=== PATIENT | male | born 1945 | race Caucasian/White ===

== ENCOUNTER → 2023-11-02 12:55 | Outpatient (REF) | payer MEDICARE, SELFPAY | LOC: RAD 12:55 | PROVIDERS: ATTENDING PHYSICIAN Internal Medicine Cardiovascular Disease; FAMILY PHYSICIAN Family Medicine | DX: R07.9 Chest pain, unspecified (principal) | CPT/HCPCS: 93925 ==

== ENCOUNTER → 2024-03-26 10:13 | Outpatient (REF) | payer MEDICARE, SELFPAY ==
[2024-03-26 10:58] LABS: % Basophils 0.9 % (0-2); % Eosinophils 3.8 % (0-6); % Immature Granulocytes 0.4 % (0-0.5); % Lymphocytes 12.8 % (20.5-51.1); % Monocytes 8.2 % (1.7-9.3); % Neutrophils 73.9 % (42.2-75.2); Absolute Basophils 0.1 10^3/uL (0-0.2); Absolute Eosinophils 0.3 10^3/uL (0-0.7); Absolute Lymphocytes 0.9 10^3/uL (1.2-3.4); Absolute Monocytes 0.6 10^3/uL (0.1-0.6); Hematocrit 39.9 % (39.0-52.0); Hemoglobin 13.8 g/dL (13.0-18.0); Mean Corp Hgb Conc. 34.6 g/dL (33.0-37.0); Mean Corpuscular Hgb 30.9 pg (27.0-31.0); Mean Corpuscular Volume 89.5 fL (80.0-94.0); Mean Platelet Volume 8.5 fL (7.4-10.4); Nucleated Red Blood Cells % 0 % (-); Platelet Count 255 10^3/uL (130-400); Red Blood Cell Count 4.46 10^6/uL (4.70-6.10); Red Cell Dist. Width 12.2 % (11.5-14.5); White Blood Cell Count 6.8 10^3/uL (4.8-10.8)
[2024-03-26 11:27] LABS: ALT (SGPT) 23 U/L (0-50); AST (SGOT) 24 U/L (17-59); Albumin 4.1 g/dl (3.5-5.0); Alkaline Phosphatase 76 U/L (38-126); Blood Urea Nitrogen 17 mg/dl (9-20); Calcium 9.8 mg/dl (8.4-10.2); Carbon Dioxide 29 mmol/L (22-30); Chloride 104 mmol/L (98-107); Glucose 100 mg/dl (70-99); HDL Cholesterol 71 mg/dl; LDL Cholesterol, Calculated 99 mg/dl; Potassium 4.7 mmol/L (3.5-5.1); Sodium 140 mmol/L (135-145); Total Bilirubin 0.7 mg/dl (0.2-1.3); Total Cholesterol 178 mg/dl (50-199); Total Protein 7.4 g/dl (6.3-8.2); Triglyceride 44 mg/dl (10-149); Very Low Density Lipoprotein 8 mg/dl (0-30); eGFR > 60.00
[2024-03-26 11:41] LABS: Free T4 1.08 ng/dl (0.78-2.19); Vitamin D, 25-OH*** 33.2 ng/mL (30-80)
[2024-03-26 11:54] LABS: TSH 1.55 uIU/ml (0.47-4.68)
== END ==
LOC: REG 10:13
PROVIDERS: ATTENDING PHYSICIAN Family Medicine; FAMILY PHYSICIAN Internal Medicine Hematology & Oncology; REFERRING PHYSICIAN Internal Medicine Gastroenterology
DX: D47.2 Monoclonal gammopathy (principal); Z82.3 Family history of stroke; D68.51 Activated protein C resistance; E78.2 Mixed hyperlipidemia; K21.9 Gastro-esophageal reflux disease without esophagitis; N20.0 Calculus of kidney; R53.82 Chronic fatigue, unspecified
CPT/HCPCS: 36415; 80053; 80061; 82306; 82784; 83521; 84155; 84165; 84439; 84443; 85025; 86334

== ENCOUNTER → 2024-04-01 12:00 | Outpatient (REF) | payer MEDICARE, SELFPAY | LOC: DHSLP 12:00 | PROVIDERS: ATTENDING PHYSICIAN Internal Medicine Critical Care Medicine; FAMILY PHYSICIAN Family Medicine | DX: G47.33 Obstructive sleep apnea (adult) (pediatric) (principal) | CPT/HCPCS: 95806 ==

== ENCOUNTER → 2024-07-26 13:29 | Outpatient (REF) | payer MEDICARE, SELFPAY | LOC: HWRAD 13:29 | PROVIDERS: ATTENDING PHYSICIAN Family Medicine; REFERRING PHYSICIAN Internal Medicine Cardiovascular Disease | DX: E78.2 Mixed hyperlipidemia (principal); I65.23 Occlusion and stenosis of bilateral carotid arteries | CPT/HCPCS: 93880 ==

== ENCOUNTER → 2025-02-26 11:05 | Outpatient (REF) | payer MEDICARE, SELFPAY ==
[2025-02-26 11:41] LABS: % Basophils 0.6 % (0-2); % Eosinophils 3.1 % (0-6); % Immature Granulocytes 0.3 % (0-0.5); % Lymphocytes 12.9 % (20.5-51.1); % Monocytes 7.9 % (1.7-9.3); % Neutrophils 75.2 % (42.2-75.2); Absolute Eosinophils 0.2 10^3/uL (0-0.7); Absolute Lymphocytes 0.8 10^3/uL (1.2-3.4); Absolute Monocytes 0.5 10^3/uL (0.1-0.6); Absolute Neutrophils 4.6 10^3/uL (1.4-6.5); Hematocrit 40.3 % (39.0-52.0); Hemoglobin 13.7 g/dL (13.0-18.0); Mean Corpuscular Hgb 30.5 pg (27.0-31.0); Mean Corpuscular Volume 89.8 fL (80.0-94.0); Mean Platelet Volume 8.7 fL (7.4-10.4); Nucleated Red Blood Cells % 0 % (-); Platelet Count 220 10^3/uL (130-400); Red Blood Cell Count 4.49 10^6/uL (4.70-6.10); Red Cell Dist. Width 12.1 % (11.5-14.5); White Blood Cell Count 6.2 10^3/uL (4.8-10.8)
[2025-02-26 12:04] LABS: Glycohemoglobin (HgbA1c) 5.5 % (4.0-5.6)
[2025-02-26 13:13] LABS: Free T4 1.06 ng/dl (0.78-2.19)
[2025-02-26 13:24] LABS: ALT (SGPT) 19 U/L (0-50); AST (SGOT) 20 U/L (17-59); Alkaline Phosphatase 63 U/L (38-126); Blood Urea Nitrogen 15 mg/dl (9-20); Calcium 9.2 mg/dl (8.4-10.2); Carbon Dioxide 26 mmol/L (22-30); Chloride 108 mmol/L (98-107); Glucose 102 mg/dl (70-99); Potassium 4.1 mmol/L (3.5-5.1); Sodium 140 mmol/L (135-145); Total Bilirubin 0.7 mg/dl (0.2-1.3); Total Protein 7.3 g/dl (6.3-8.2); eGFR > 60.00
[2025-02-26 13:25] LABS: ALT (SGPT) 19 U/L (0-50); AST (SGOT) 20 U/L (17-59); Albumin 4.1 g/dl (3.5-5.0); Alkaline Phosphatase 64 U/L (38-126); Blood Urea Nitrogen 15 mg/dl (9-20); Calcium 9.3 mg/dl (8.4-10.2); Carbon Dioxide 26 mmol/L (22-30); Chloride 108 mmol/L (98-107); Glucose 102 mg/dl (70-99); HDL Cholesterol 71 mg/dl; LDL Cholesterol, Calculated 85 mg/dl; Potassium 4.3 mmol/L (3.5-5.1); Sodium 140 mmol/L (135-145); Total Bilirubin 0.8 mg/dl (0.2-1.3); Total Cholesterol 167 mg/dl (50-199); Total Protein 7.4 g/dl (6.3-8.2); Triglyceride 55 mg/dl (10-149); Very Low Density Lipoprotein 11 mg/dl (0-30); eGFR > 60.00
[2025-02-26 13:27] LABS: PSA, Total - Screen 3.21 ng/ml (0.0-4.0); TSH 1.69 uIU/ml (0.47-4.68)
== END ==
LOC: REG 11:05
PROVIDERS: ATTENDING PHYSICIAN Internal Medicine Hematology & Oncology; FAMILY PHYSICIAN Family Medicine
DX: D47.2 Monoclonal gammopathy (principal); Z82.3 Family history of stroke; D68.51 Activated protein C resistance; E78.2 Mixed hyperlipidemia; R73.01 Impaired fasting glucose; N52.9 Male erectile dysfunction, unspecified; J44.9 Chronic obstructive pulmonary disease, unspecified; R53.82 Chronic fatigue, unspecified
CPT/HCPCS: 36415; 80053; 80061; 82784; 83036; 83521; 84155; 84165; 84439; 84443; 85025; 86334; G0103

== ENCOUNTER → 2025-07-24 13:10 | Outpatient (REF) | payer MEDICARE, SELFPAY | LOC: RAD 13:10 | PROVIDERS: ATTENDING PHYSICIAN Internal Medicine Critical Care Medicine; FAMILY PHYSICIAN Family Medicine | DX: R06.02 Shortness of breath (principal) | CPT/HCPCS: 71046 ==

== ENCOUNTER 2025-08-06 20:44 | Emergency (ER) | payer MEDICARE, SELFPAY ==
[2025-08-06 20:47] VITALS: BP 152/65
[2025-08-06 21:09] LABS: Hematocrit 41.5 % (39.0-52.0); Hemoglobin 14.3 g/dL (13.0-18.0); Mean Corp Hgb Conc. 34.5 g/dL (33.0-37.0); Mean Corpuscular Volume 89.6 fL (80.0-94.0); Nucleated Red Blood Cells % 0 % (-); Platelet Count 238 10^3/uL (130-400); Red Cell Dist. Width 12.5 % (11.5-14.5)
[2025-08-06 21:20] LABS: ALT (SGPT) 23 U/L (0-50); AST (SGOT) 23 U/L (17-59); Albumin 4.3 g/dl (3.5-5.0); Alkaline Phosphatase 65 U/L (38-126); Blood Urea Nitrogen 19 mg/dl (9-20); Calcium 9.3 mg/dl (8.4-10.2); Carbon Dioxide 30 mmol/L (22-30); Chloride 103 mmol/L (98-107); Glucose 118 mg/dl (70-99); Potassium 4.4 mmol/L (3.5-5.1); Sodium 138 mmol/L (135-145); Total Protein 7.9 g/dl (6.3-8.2); eGFR > 60.00
[2025-08-06 21:31] LABS: Troponin I < 0.012 ng/ml
--- NOTE | 2025-08-06 21:53 | ED.GENMED ---
History of Present Illness
<Kait Hewitt MD, Resident - Last Filed: 08/06/25 22:40>
General
Chief Complaint: Dizziness
Source: patient
Exam Limitations: none
Time Seen by Provider: 08/06/25 21:34
Nursing documentation reviewed up to this point in time: agreed with
History of Present Illness
History of Present Illness:
80yo M with a hx of COPD, pulmonary fibrosis, HLD, GERD, & prior bladder ca who presents with subacute dizziness/lightheadedness and palpitations.
Pt reports that he began having sx of dizziness/lightheadedness, accompanied by palpitations/sense of heart fluttering, about 1 mo ago. It self-resolved without going to ED. He spoke with investment analyst, who told him to present for eval if he
experienced the sx again and who had him monitor BP at home. [employer] BP monitor flagged for the last few days that he had an 'irregular heartbeat.' Over the last few days, he also began experiencing the sensation of lightheadedness & palpitations. BPs
remained within normal range (max 130 systolic) throughout. Pt denies any n/v accompanying these episodes, denies any chest pain, denies any loss of consciousness. Endorses mild headache. Denies any abnormal caffeine intake (1 cup/day) or physical
activity preceding the onset of the most recent episodes. States that the only abnormal sx was bloating in abdomen. Takes amlodipine & metoprolol for HTN.
Past History
<Kait Hewitt MD, Resident - Last Filed: 08/06/25 22:40>
Past History
ED Past Medical History: Cancer (bladder), GERD and Hypercholesterolemia
ED Past Surgical History: Urological and Other (hernia repair,)
Social History
Tobacco: Former smoker
Alcohol: None
Drug: None
Personal:
Living: with family
Family History
Family History: Negative Diabetes
Review of Systems
<Kait Hewitt MD, Resident - Last Filed: 08/06/25 22:40>
Review of Systems
Allergies reviewed?: Yes
All Other Systems: ROS reviewed and negative except as documented in HPI and ROS
Constitutional: Reports no symptoms
EENT: Reports no symptoms
Respiratory: Reports no symptoms
Cardiac: Reports palpitations
ABD/GI: Reports no symptoms
: Reports no symptoms
Musculoskeletal: Reports no symptoms
Skin: Reports no symptoms
Neurological: Reports dizzy and headache
Psychiatric: Reports no symptoms
Phy Exam
<Kait Hewitt MD, Resident - Last Filed: 08/06/25 22:40>
General Physical Exam
General Presentation: well appearing and no apparent distress
General age: appears stated age
General Skin: warm and dry
General Habitus: normal
General Mental: alert
Cardiovascular Exam
Cardiovascular Exam: no edema, no murmur and occasionally irregular
Heart Sounds: normal
Pulmonary Exam
Pulmonary Exam: no respiratory distress
Gastrointestinal Exam
Gastrointestinal Exam: non distended
Neurological Exam
Neurological Exam: alert
Musculoskeletal Exam
Musculoskeletal Exam: full ROM
Skin Exam
Skin Exam: normal color
Psychiatric Exam
Psychiatric Exam: normal mood/affect
Scores
<Kimmie Stevens, DO - Last Filed: 08/06/25 22:55>
Heart Score for Chest Pain Patients
STEMI patient?: No
History: Slightly or Non-Suspicious
ECG: Normal
Age: >/= 65 years
Risk Factors: 1 or 2 Risk Factors
Troponin: </= Normal Limit
Heart Score for Chest Pain Patients: 3
Heart Score Risk: 2.5% MACE over next 6 weeks
Course
<Kait Hewitt MD, Resident - Last Filed: 08/06/25 22:40>
Orders/Labs/Results
Orders:
Orders
08/06/25 20:45
EKG [Electrocardiogram (*1)] Urgent
Reason for Study: Chest Pain
EKG- Treatment ONCE
08/06/25 20:57
Complete Blood Count/With Diff Urgent
Comprehensive Metabolic Panel Urgent
Troponin I Urgent
08/06/25 22:01
Electrocardiogram (*1) Urgent
Reason for Study: Palpitations
EKG- Treatment ONCE
Abnormal Lab Results
08/06/25
20:57
RBC 4.63 L 10^6/uL
(4.70-6.10)
Lymphocytes % 17.4 L %
(20.5-51.1)
Glucose 118 H mg/dl
(70-99)
08/06/25 20:57
08/06/25 20:57
Vital Signs
Initial and Last Documented VS:
Initial Vital Signs
Temp Pulse Resp BP Pulse Ox
98 F 55 16 152/65 98
08/06/25 20:47 08/06/25 20:47 08/06/25 20:47 08/06/25 20:47 08/06/25 20:47
Last Documented Vital Signs
Temp Pulse Resp BP Pulse Ox
98 F 55 16 121/81 96
08/06/25 20:47 08/06/25 20:47 08/06/25 20:47 08/06/25 22:11 08/06/25 22:15
<Kimmie Stevens, DO - Last Filed: 08/06/25 22:55>
Orders/Labs/Results
Orders:
Orders
08/06/25 20:45
EKG [Electrocardiogram (*1)] Urgent
Reason for Study: Chest Pain
EKG- Treatment ONCE
08/06/25 20:57
Complete Blood Count/With Diff Urgent
Comprehensive Metabolic Panel Urgent
Troponin I Urgent
08/06/25 22:01
Electrocardiogram (*1) Urgent
Reason for Study: Palpitations
EKG- Treatment ONCE
Abnormal Lab Results
08/06/25
20:57
RBC 4.63 L 10^6/uL
(4.70-6.10)
Lymphocytes % 17.4 L %
(20.5-51.1)
Glucose 118 H mg/dl
(70-99)
08/06/25 20:57
08/06/25 20:57
Vital Signs
Initial and Last Documented VS:
Initial Vital Signs
Temp Pulse Resp BP Pulse Ox
98 F 55 16 152/65 98
08/06/25 20:47 08/06/25 20:47 08/06/25 20:47 08/06/25 20:47 08/06/25 20:47
Last Documented Vital Signs
Temp Pulse Resp BP Pulse Ox
98 F 55 16 121/81 96
08/06/25 20:47 08/06/25 20:47 08/06/25 20:47 08/06/25 22:11 08/06/25 22:15
<Kait Hewitt MD, Resident - Last Filed: 08/06/25 22:40>
MDM/Problems Addressed
Differential Diagnosis Includes:
PVCs with bigeminy
R/o ACS
R/o afib, arrhythmia w electrolyte abnormality
less likely:
orthostatic hypotension, dehydration
MDM/Problems Addressed:
Plan:
- EKG
- Troponin
- CBC, CMP
- Check orthostatics
Chronic conditions affecting care:
Pt on metoprolol & amlodipine at baseline; metoprolol would typically be first line trt for symptomatic PVCs
Chronic conditions affecting care: HTN
<Kait Hewitt MD, Resident - Last Filed: 08/06/25 22:40>
*Pulse Oximetry
SaO2: 98
Oxygen Mode of Delivery: Room air
*EKG
Interpreted by ED Provider?: Yes
EKG Intrepretation Date: 08/06/25
Interpretation: abnormal
Rhythm: PVC's
[place]: normal axis
QRS Pattern: normal QRS
Ischemia: no ischemia
Data Reviewed
Review of Other/Old Records Reveals: Labs
Source: patient and significant other
<Kimmie Stevens, DO - Last Filed: 08/06/25 22:55>
*Pulse Oximetry
Patient hypoxic: no
*Critical Care Note
Total Time (30-74mins, 75-104mins- exclusive of procedures): Not Applicable
<Kait Hewitt MD, Resident - Last Filed: 08/06/25 22:40>
Update Note
Update Note:
Orthostatic vitals: no significant BP change, HR increase from 72 to 96 with supine to standing
Repeat EKG with resolution of PVCs w bigeminy
ED Attending Note
<Kait Hewitt MD, Resident - Last Filed: 08/06/25 22:40>
-
Portions of this chart may have been created with voice recognition software.� Occasional wrong word or��sound alike� substitutions may have occurred due to the inherent limitations of voice recognition software.
<Kimmie Stevens DO - Last Filed: 08/06/25 22:55>
ED Attending Note
Patient seen and examined by attending physician: Yes
I performed the substantive portion of visit, reviewed & personally made and approve the management plan that is documented in note by myself or REBEKAH.: Yes
I performed a history and physical exam of patient and discussed management with resident, I reviewed resident's note and agree with documented findings and plan of care.: Yes
ED Attending Note:
80-year-old male with history of hypertension and COPD presenting to the emergency department for palpitations and lightheadedness. Patient reports symptoms for the past few days. Notes similar symptoms about a month ago. In discussion with his
investment analyst, recommended monitoring his symptoms, has an appointment upcoming in August. He is currently on metoprolol and amlodipine. He reports that he has a monitor which measures both his heart rate and his blood pressure. In the past
several readings, was noting that his heart rate was 'irregular 'notes that sometimes he will get a chest discomfort with the symptoms, however denies any present chest discomfort. Notes that sometimes the symptoms are associated with dyspnea.
Vital signs on arrival are significant for bradycardia.
On exam patient is resting comfortably, no acute distress or discomfort. Presently unremarkable cardiac and pulmonary exam. Orthostatic vital signs obtained, unremarkable. EKG obtained on arrival which shows evidence of PVCs in a pattern of
bigeminy. Suspected PVCs to be etiology of patient's symptoms.. Labs obtained prior to my assessment, within normal limits. Undetectable troponin, currently without any chest pain, with lower suspicion for ACS. Additionally, no signs of ischemic
change upon EKG suspect that patient's symptoms are from frequency of the PVCs. Patient is already on metoprolol. Given occasional bradycardia, would hold any additional increase in dosage until follow-up with cardiology. EKG repeated while
patient in the ER, which shows improvement of the bigeminy and resolution. Ultimately feel that patient is stable for discharge, however with close interval follow-up with investment analyst due to increasing symptomology patient in agreement with plan,
will call investment analyst. Return precautions discussed and patient verbalized understanding
Discharge Plan
Departure
Patient Disposition: Home (Routine Discharge)
Date of Disposition: 08/06/25
Time of Disposition: 22:35
Patient with high blood pressure during this ER visit?: No
Condition: Good
Covid-19: Not Applicable
Discharge Problem:
Symptomatic PVCs
Instructions: Ventricular premature beats, Chest Pain DCA Follow Up
Prescriptions:
No Action
multivitamin [One Daily Essential] 1 EACH tablet
1 ea PO QPM
Co Q-10 Tab
1 tab PO QPM
aspirin 81 MG tablet,delayed release (DR/EC)
81 mg PO QPM
ascorbic acid (vitamin C) [Vitamin C] 500 MG tablet
500 mg PO DAILY
fiber [Fiber Off] 1 EACH tablet
1 tab PO QPM
magnesium hydroxide 30 ML suspension
30 ml PO QIDPRN PRN (Reason: constipation) Qty: 0 0RF
Crestor
1 tab PO DAILY
Nexium
1 tab PO DAILY
tamsulosin 0.4 MG capsule
0.4 mg PO DAILY Qty: 20 0RF
oxycodone-acetaminophen 5 MG/325 MG tablet
1 tab PO Q6HPRN PRN (Reason: pain) Qty: 10 0RF
Referrals:
Ashley Rucker DO [Family Provider, Family Practice]
Activity Restrictions/Additional Instructions:
You were seen in the emergency department for palpitations and dizziness
You were found to have PVCs which are preventricular contractions, sometimes referred to as an 'extra beat '. We suspect that this is contributing to your symptoms
We recommend close interval follow-up with your investment analyst for medication adjustment or possible additional testing such as a Holter monitor
Return to the emergency department for any worsening of your symptoms, or any development of chest pain, difficulty breathing, abdominal pain with persistent vomiting and inability to tolerate food or liquid by mouth (concern for dehydration),
weakness, headache or confusion, fever greater than 100.4, or any additional symptoms that are concerning to you.
Thank you for choosing [facility].
Interventions
Interventions:
*Risk Screen - Suicide Last Done: 08/06/25 20:47
*General Assessment Last Done: 08/06/25 22:03
*Neglect/Abuse Screening Last Done: 08/06/25 20:47
*ED- Fall Risk Assessment Last Done: 08/06/25 22:03
*ED COVID-19 Vaccine History Last Done: 08/06/25 22:03
*ED Influenza Vaccine History Last Done: 08/06/25 22:03
ED- Neurological Assessment Last Done: 08/06/25 22:03
ED- Cardiac Assessment Last Done: 08/06/25 22:03
ED Swallowing Screen Last Done: 08/06/25 22:03
Discharge Date and Time
Print Language: ALBANIAN
[2025-08-06 22:01] VITALS: BP 124/66; BMI 26.4
[2025-08-06 22:08] VITALS: BP 123/71
[2025-08-06 22:10] VITALS: BP 121/81; BP 123/71; BP 124/71; PULSE 70; PULSE 72; PULSE 96
[2025-08-06 22:11] VITALS: BP 121/81
== END 2025-08-06 23:17 | disposition home or self-care (01) ==
LOC: EMR 20:44
PROVIDERS: EMERGENCY PHYSICIAN Student in an Organized Health Care Education/Training Program; FAMILY PHYSICIAN Family Medicine
DX: I49.3 Ventricular premature depolarization (principal); R00.1 Bradycardia, unspecified; I10 Essential (primary) hypertension; E78.00 Pure hypercholesterolemia, unspecified; J44.9 Chronic obstructive pulmonary disease, unspecified; J84.10 Pulmonary fibrosis, unspecified; K21.9 Gastro-esophageal reflux disease without esophagitis; Z79.82 Long term (current) use of aspirin; Z87.891 Personal history of nicotine dependence; Z85.51 Personal history of malignant neoplasm of bladder
CPT/HCPCS: 99284; 80053; 84484; 85025; 93005